=== PATIENT | male | born 1960 | race Caucasian/White ===

== ENCOUNTER → 2019-02-22 08:44 | Outpatient (CLI) | payer MEDICARE ==
--- NOTE | 2019-02-27 09:50 | ST ---
PATIENT:KENA BRITTON MEDICAL RECORD: [id number] SEX: M LOCATION:[facility] ORDER #: ADMISSION DATE: 02/22/19 AGE OF PATIENT: 58 REFERRING PHYSICIAN: INTERPRETING PHYSICIAN: NANY GARCIA MD DATE OF SERVICE: 02/22/2019 PROCEDURE: Nuclear stress test. INDICATION: Angina, abnormal ECG, dysrhythmia -- atrial fibrillation. He was exercised on standard Ryan protocol for 7 minutes 40 seconds achieving greater than 85% max target heart rate response with 33 mCi of sestamibi injected at peak stress, 11 mCi used previously for rest images. FINDINGS: Gated SPECT reveals preserved ejection fraction at 57% with good wall motion and thickening and brightening throughout all segments. SPECT imaging Cardiolite was used as myocardial fusion agent. There is homogeneous uptake throughout all segments at rest and stress with no evidence of inducible ischemia or previous infarction. OVERALL IMPRESSION: 1. This is a normal nuclear stress test with no evidence of inducible ischemia or previous infarction. 2. Gated SPECT reveals a preserved ejection fraction at 57%. In this patient with ongoing symptomatology, the current scan does not suggest the presence of hemodynamically significant coronary artery disease. Evaluate noncardiac etiology of chest pain. TRANSINT:[id number] Voice Confirmation ID: [id number] DOCUMENT ID: [id number] NANY GARCIA MD at 0950 CC: EDENILSON COLE DO [id number] DICTATION DATE: 02/22/19 1638 GEAR HOBBER OPERATOR: 02/23/19 0851 [place] CLI 02/22/19 [place] [id number] [place] [address]
--- NOTE | 2019-02-27 14:16 | EC ---
PATIENT:KENA BRITTON DATE OF SERVICE: 02/22/19 SEX: M MEDICAL RECORD: [id number] DATE OF : 56 [facility] AGE OF PATIENT: 58 ADMISSION DATE: 02/22/19 REFERRING PHYSICIAN: INTERPRETING PHYSICIAN: SHANE MOCK MD ECHOCARDIOGRAM REPORT ECHO CHARGES 4 ECHO COMPLETE Date: 02/22/19 CLINICAL DIAGNOSIS: A-FIB/ABNORMAL EKG/ANGINA/ GUTIÉRREZ/MURMUR ECHOCARDIOGRAPHIC MEASUREMENTS (adult normal given) AC root (d.<3.7cm) 3.3 cm LV Septum d (<1.2 cm> 1.2 cm Valve Excursion 2.0 cm LV Septum (systole) 1.6 cm Left Atria (s.<4.0cm> 3.9 cm LVPW d(<1.2cm) 1.0 cm RV (d.<2.3cm) 2.9 cm LVPW (sytole) 1.9 cm LV diastole(<5.6CM) 5.2 cm MV E-F(>70mm/sec) cm LV systole 3.1 cm LVOT Diameter 2.0 cm MV exc.(>10mm) cm Est.ejection fraction (50-75%) % DOPPLER: LVIT cm/sec A 44.0 cm/sec E 74.0 cm/sec LA cm/sec RVSP 39.0 mmHg LVOT 98.0 cm/sec AOP1/2T m/s Asc. Ao 141 cm/sec RVOT 59.0 cm/sec RA cm/sec PA 87.0 cm/sec AV Gradient Peak 8.0 mmHg AV Mean 4.0 mmHg AV Area 2.4 cm MV Gradient Peak 4.3 mmHg MV Mean 1.3 mmHg MV Area cm COMMENTS: OP - HC Cryptographic Clerk: 1 ALFREDO BARRIENTOSOE Alcohol Rubber: 3 Dr. Cox TAPE# PACS Pericardial Effusion N DATE OF SERVICE: Adequate 2-D echo, color-flow and spectral Doppler, and M-mode. No LVH. LV internal dimension is normal. Wall motion normal. EF is greater than or equal to 55%. Aortic valve is tricuspid. No evidence of stenosis by Doppler interrogation. Left atrium normal at 3.9 cm. Mitral valve shows no prolapse. Trace MR. Right-sided chambers are grossly normal. Mild TR. TRANSINT:[id number] Voice Confirmation ID: [id number] DOCUMENT ID: [id number] ECHOCARDIOGRAM REPORT [id number] KENA BRITOTN,SHANE Onofre MD at 1416 CC: [id number] DICTATION DATE: 02/23/19 1338 CHARTER DRIVER: 02/23/19 1531 [place] CLI 02/22/19 [place] [id number]
== END | disposition home or self-care (01) ==
LOC: D.HCCARDIO 08:44
PROVIDERS: ATTEND Internal Medicine Interventional Cardiology
DX: I20.9 Angina pectoris, unspecified (principal)

== ENCOUNTER 2019-06-28 15:55 | Inpatient (IN) | payer MEDICARE, OTHER ==
[~2019-06-28] VITALS: Ht 177.8 cm; Wt 77.3 kg
[2019-06-28 17:24] LABS: BASOPHILS 0.2 % (0-2); EOSINOPHILS 1.2 % (0-7); HEMATOCRIT 56.5 % (42.0-54.0); HEMOGLOBIN 20.5 g/dL (13.5-17.5); IMMATURE GRANULOCYTES 0.4 % (0-5); LYMPHOCYTES 17.1 % (15-50); MCH 31.9 pg (26.0-34.0); MCHC 36.3 g/dL (31.0-37.0); MCV 87.9 fL (80.0-100.0); MEAN PLATELET VOLUME 10.6 fL (7.4-10.4); MONOCYTES 12.2 % (2-11); NEUTROPHILS 68.9 % (40-80); PLATELET COUNT 285 10x3/uL (130-400); RBC 6.43 10x6/uL (4.20-6.10); RDW 12.5 % (11.5-14.5); WBC 10.7 10x3/uL (4.8-10.8)
[2019-06-28 17:27] VITALS: BP 134/85; BMI 25.5
[2019-06-28 17:38] LABS: ANION GAP 14.2 mmol/L (8-16); CALCIUM 9.6 mg/dL (8.5-10.1); CARBON DIOXIDE 29.5 mmol/L (21.0-32.0); CREATININE - SERUM 1.1 mg/dL (0.6-1.3); POTASSIUM - SERUM 5.7 mmol/L (3.5-5.1)
[2019-06-28 17:44] LABS: ALBUMIN 3.9 g/dL (3.4-5.0); BILIRUBIN - TOTAL 0.84 mg/dL (0.2-1.3); PROTEIN - SERUM 6.7 g/dL (6.4-8.2)
--- NOTE | 2019-06-28 19:45 | NUR ---
PT RESTING IN BED ALERT AND ORIENTED X4. NO S/S OF DISTRESS AT THIS TIME. BED LOW CALL LIGHT WITHIN REACH. WILL CONTINUE TO MONITOR.
[2019-06-28 20:00] VITALS: BP 146/98
[2019-06-29] VITALS: BP 137/90
[2019-06-29 04:00] VITALS: BP 128/80
[2019-06-29 04:25] LABS: BASOPHILS 0.2 % (0-2); EOSINOPHILS 1.1 % (0-7); HEMATOCRIT 52.6 % (42.0-54.0); HEMOGLOBIN 18.2 g/dL (13.5-17.5); IMMATURE GRANULOCYTES 0.6 % (0-5); LYMPHOCYTES 19.3 % (15-50); MCH 30.8 pg (26.0-34.0); MCHC 34.6 g/dL (31.0-37.0); MCV 89.2 fL (80.0-100.0); MONOCYTES 9.7 % (2-11); NEUTROPHILS 69.1 % (40-80); PLATELET COUNT 275 10x3/uL (130-400); RDW 12.6 % (11.5-14.5); WBC 8.3 10x3/uL (4.8-10.8)
[2019-06-29 04:37] LABS: APPEARANCE CLEAR (CLEAR); BILIRUBIN NEGATIVE (NEGATIVE); COLOR YELLOW (YELLOW); GLUCOSE NEGATIVE (NEGATIVE); KETONE LARGE mg/dL (NEGATIVE); NITRITE NEGATIVE (NEGATIVE); PROTEIN 1+ mg/dL (NEGATIVE); UROBILINOGEN NORMAL (NORMAL)
[2019-06-29 04:38] LABS: BACTERIA NONE SEEN /hpf (NEGATIVE); CALCIUM OXALATE CRYSTALS 0-5 /hpf (NONE SEEN); EPITHELIAL CELLS NSEEN /hpf (0-5); RED CELLS - URINE NONE SEEN /hpf (0-5); WHITE CELLS - URINE 0-5 /hpf (NEGATIVE)
[2019-06-29 04:54] LABS: ALBUMIN 3.3 g/dL (3.4-5.0); ANION GAP 14.1 mmol/L (8-16); BILIRUBIN - TOTAL 0.83 mg/dL (0.2-1.3); CALCIUM 8.4 mg/dL (8.5-10.1); CARBON DIOXIDE 28.3 mmol/L (21.0-32.0); CREATININE - SERUM 1.2 mg/dL (0.6-1.3); POTASSIUM - SERUM 5.4 mmol/L (3.5-5.1); PROTEIN - SERUM 6.2 g/dL (6.4-8.2)
--- NOTE | 2019-06-29 07:53 | NUR ---
REPORT RECEIVED. WILL CONTINUE WITH POC. PT CURRENTLY LYING ON LEFT SIDE RESTING. CALL LIGHT W/I REACH. RR EVEN AND UNLABORED ON RA. NS INFUSING @100ML/HR VIA R.FOR PIV. NO S/S OF DISTRESS NOTED. PT DENIES ANY NEEDS. WILL CTM.
[2019-06-29 09:18] VITALS: BP 132/70
[2019-06-29 12:00] VITALS: BP 135/83
[2019-06-29 12:09] VITALS: BMI 25.5
[2019-06-29 13:19] LABS: % SATURATION 36 % (15-55); IRON 101 ug/dl (35-150); TOTAL IRON BIND CAPACITY 276 ug/dl (260-445); UNSAT IRON BIND CAPACITY 175 ug/dl (150-375)
--- NOTE | 2019-06-29 14:38 | NUR ---
I have reviewed this patient and I concur with the Shift Assessment completed by the Licensed Practical Nurse today this shift.
[2019-06-29 18:04] VITALS: BP 138/90
[2019-06-29 20:00] VITALS: BP 143/94
--- NOTE | 2019-06-30 02:50 | NUR ---
PT RESTING COMFORTABLY IN BED RR EVEN AND UNLABORED. NO S/S OF DISTRESS AT THIS TIME. BED LOW CALL LIGHT WITHIN REACH. GUILLE CONTINUE TO MONITOR.
[2019-06-30 04:00] VITALS: BP 129/92
[2019-06-30 04:01] LABS: BASOPHILS 0.5 % (0-2); EOSINOPHILS 3.6 % (0-7); HEMATOCRIT 46.9 % (42.0-54.0); HEMOGLOBIN 16.3 g/dL (13.5-17.5); IMMATURE GRANULOCYTES 0.3 % (0-5); LYMPHOCYTES 33.3 % (15-50); MCHC 34.8 g/dL (31.0-37.0); MCV 89.2 fL (80.0-100.0); MEAN PLATELET VOLUME 10.6 fL (7.4-10.4); NEUTROPHILS 50.3 % (40-80); PLATELET COUNT 234 10x3/uL (130-400); RBC 5.26 10x6/uL (4.20-6.10); RDW 12.3 % (11.5-14.5)
[2019-06-30 04:09] LABS: WBC 5.8 10x3/uL (4.8-10.8)
[2019-06-30 04:28] LABS: ALBUMIN 3.1 g/dL (3.4-5.0); ANION GAP 8.9 mmol/L (8-16); BILIRUBIN - TOTAL 1.07 mg/dL (0.2-1.3); CALCIUM 8.4 mg/dL (8.5-10.1); CARBON DIOXIDE 30.6 mmol/L (21.0-32.0); CREATININE - SERUM 1.1 mg/dL (0.6-1.3); PROTEIN - SERUM 5.5 g/dL (6.4-8.2)
[2019-06-30 04:39] LABS: POTASSIUM - SERUM 4.5 mmol/L (3.5-5.1)
[2019-06-30 09:59] VITALS: BP 135/82
--- NOTE | 2019-06-30 13:12 | NUR ---
RIGHT FA IV SL.
[2019-06-30 13:28] VITALS: BP 132/95
--- NOTE | 2019-06-30 15:54 | NUR ---
I have reviewed this patient and I concur with the Shift Assessment completed by the Licensed Practical Nurse today this shift.
--- NOTE | 2019-06-30 16:10 | NUR ---
PT SITTING IN RECLINER CHIAR. PT STATES HE HAS NO FURTHER NEEDS AT THIS TIME. BED LOW. CL IN REACH.
--- NOTE | 2019-06-30 16:21 | MORECARE ---
CASE MANAGEMENT DISCHARGE SUMMARY PATIENT: KENA BRITTON UNIT: [id number] ADM DATE: 06/28/19 AGE: 59 : 56 SEX: M ROOM/BED: D.[facility] AUTHOR: MARIA ALEJANDRADOC PHYSICIAN: REFERRING PHYSICIAN: EDENILSON COLE DO DATE OF SERVICE: 06/30/19 Discharge Plan Patient Name: KENA BRITTON Facility: [facility]:[place] : 1960 Planned Disposition: Home Anticipated Discharge Date: Discharge Date: Expected LOS: Initial Reviewer: [email or web address] Initial Review Date: 06/30/2019 Generated: 06/30/19 5:21 pm Comments DCP- Discharge Planning Updated by [email or web address]: Dwight Moreno on 06/30/19 3:[address] Patient Name: KENA BRITTON Admission Status: Elective Accout number: [id number] Admission Date: 06-28-2019 : 1960 Admission Diagnosis: Attending: EDENILSON COLE Current LOS: 2 Anticipated DC Date: Planned Disposition: Home Primary Insurance: MEDICARE A & B Discharge Planning Comments: CM MET WITH PT AND SPOUSE IN ROOM TO DISCUSS DISCHARGE PLANNING AND NEEDS. KENA BRITTON provided verbal consent to discuss current and ongoing needs with/in the presence of: SPOUSE, COLBY. PT REPORTS LIVING AT HOME INDEPENDENTLY WITH HIS . PT HAS NO MEDICAL EQUIPMENT AND NO OUTSIDE SERVICES ASSISTING IN THE HOME. CM DISCUSSED AVAILABILITY OF HOME HEALTH, REHAB SERVICES AND MEDICAL EQUIPMENT. PT DENIES DISCHARGE NEEDS, REPORTS HIS WILL PICK HIM UP FOR DISCHARGE HOME. IMPORTANT MESSAGE FROM MEDICARE PROVIDED AND EXPLAINED. PT PLANS TO DISCHARGE HOME WITH SPOUSE, HAS NO ANTICIPATED NEEDS FOR DISCHARGE, SPOUSE TO TRANSPORT. CM TO FOLLOW AND ASSIST IF NEEDED. Immigration Law Specialist: Dwight Moreno DCPIA - Discharge Planning Initial Assessment Updated by [email or web address]: Dwight Moreno on 06/30/19 4:10 pm * Is the patient Alert and Oriented? Yes * How many steps to enter\exit or inside your home? NONE * PCP DR. COLE * Pharmacy [facility] IN [place] * Preadmission Environment Home with Family * ADLs Independent * Equipment None * Other Equipment NO MEDICAL EQUIPMENT PROVIDER PREFERENCE * List name and contact numbers for known caregivers / representatives who currently or will assist patient after discharge: COLBY BRITTON, SPOUSE, [phone] * Verbal permission to speak to the caregivers and representatives has been obtained from the patient. Yes * Community resources currently utilized None * Please name any agencies selected above. NONE * Additional services required to return to the preadmission environment? No * Can the patient safely return to the preadmission environment? Yes * Has this patient been hospitalized within the prior 30 days at any hospital? No Coverage Notice Reviewer: [id number] Magdalene Moreno Notice Issued Date-Time: 06/30/2019 13:35 Notice Type: IM Discharge Notice Notice Delivered To: Patient Relationship to Patient: Demonstrator Sales Name: Delivery Method: HAND - Hand Delivered [place] Days: Prior Verbal Notification: Recipient Understood Notice: Yes Recipient Signature: Yes Med Rec Note Co-signed by Attending: Coverage Notice Comment: Patient Name: KENA BRITTON Page [phone] at 1621 All edits/amendments must be made on the electronic document DICTATION DATE: 06/30/191619 HIGH SCHOOL BAND TEACHER: SEVERIANO 06/30/19 162 RPT#: [id number] DC DATE: STATUS: ADM IN [facility] [address] [place] [address] END OF REPORT
[2019-06-30 17:32] VITALS: BP 154/88
--- NOTE | 2019-06-30 19:10 | NUR ---
BEDSIDE REPORT RECEIVED FROM DAY SHIFT, PT CARE ASSUMED. INTRODUCED SELF AND WROTE NAME ON BOARD. PT BACK TO BED FROM SHOWER, AAOX4. DENIES ANY NEEDS AT THIS TIME. BED IN LOWEST POSITION, SR X2, CALL LIGHT WITHIN REACH. WILL CONTINUE TO MONITOR.
--- NOTE | 2019-06-30 19:55 | NUR ---
DR. SNYDER TO ROOM TO DISCUSS DATE OF CHOLYCYSTECTOMY FOR 07/03/2019, WITH DR. SALINAS OR ANABEL. INFORMED PT OF RESULTS FROM IMAGING OF POSSIBILE ENTERITIS. D/C DISCUSSED FOR POST CHOLY, EITHER 07/03/2019, OR 07/04/2019.
[2019-06-30 20:00] VITALS: BP 134/88
--- NOTE | 2019-06-30 21:07 | NUR ---
PT REQUESTING BENADRYL TO HELP HIM SLEEP. JULIA BOWMAN, PAGED.
--- NOTE | 2019-06-30 21:59 | NUR ---
JULIA BOWMAN, PAGED.
--- NOTE | 2019-06-30 22:00 | NUR ---
PT SITTING UP IN BED WATCHING TV, A&A. NIGHT TIME MEDS ADMINISTERED, PER ORDER. DENIES ANY OTHER NEEDS AT THIS TIME. BED IN LOWEST POSITION, SR X2, CALL LIGHT WITHIN REACH. WILL CONTINUE TO MONITOR.
[2019-07-01] VITALS: BP 143/84
[2019-07-01 05:46] LABS: BASOPHILS 0.4 % (0-2); EOSINOPHILS 5.5 % (0-7); HEMATOCRIT 47.2 % (42.0-54.0); HEMOGLOBIN 16.2 g/dL (13.5-17.5); IMMATURE GRANULOCYTES 0.2 % (0-5); LYMPHOCYTES 36.8 % (15-50); MCH 30.6 pg (26.0-34.0); MCHC 34.3 g/dL (31.0-37.0); MCV 89.2 fL (80.0-100.0); MEAN PLATELET VOLUME 10.9 fL (7.4-10.4); MONOCYTES 14.1 % (2-11); PLATELET COUNT 228 10x3/uL (130-400); RBC 5.29 10x6/uL (4.20-6.10); RDW 12.4 % (11.5-14.5); WBC 5.3 10x3/uL (4.8-10.8)
[2019-07-01 05:59] LABS: CALC OSMOLALITY 285 mosm/kg (275-300); CALCIUM 8.6 mg/dL (8.5-10.1); CARBON DIOXIDE 31.5 mmol/L (21.0-32.0); CHLORIDE - SERUM 110 mmol/L (98-107); GLUCOSE 87 mg/dL (74-106); POTASSIUM - SERUM 5.1 mmol/L (3.5-5.1); SODIUM 145 mmol/L (136-145); eGFR NON AFRICAN AMERICAN 81 mL/min (90-120)
[2019-07-01 06:00] LABS: UREA NITROGEN 6 mg/dL (7-18)
--- NOTE | 2019-07-01 07:50 | NUR ---
PT AWAKE AND ORIENTED, C/O WANTING A BETTER MORE FILLING DIET. SPOKE WITH ELLIOTT BOWMAN, WILL ADVANCE TO FULL LIQUIDS AND REASSES POST BREAKFAST. CL IN REACH, SRX2. NO FAMILY AT BEDSIDE. PT STATED HE WAS TOLD HE COULD GO HOME AND RETURN WEDNESDAY FOR OUTPATIENT GALL BLADDER REMOVAL, BUT HE REFUSED. STATED "IF I GO HOME AND EAT A WHOLE PIZZA I'LL JUST BE RIGHT BACK HERE". INFORMED PT THAT THE BEST OPTION IN THAT SCENERIO WOULD BE TO JUST NOT EAT A WHOLE PIZZA.
[2019-07-01 08:16] VITALS: BP 134/82
[2019-07-01 11:45] VITALS: BP 145/95
[2019-07-01 16:36] VITALS: BP 150/92
--- NOTE | 2019-07-01 18:31 | NUR ---
PT AWAKE AND ORIENTED ALL DAY. UP AD KAROLINA WITH NO ASSISTANCE. NO COMPLAINTS OR CONCERNS OR QUESTIONS. FAMILY HAS BEEN IN AND OUT OF ROOM VISITING ALL DAY. CL IN REACH, SRX2.
--- NOTE | 2019-07-01 19:10 | NUR ---
BEDSIDE REPORT RECEIVED FROM DAY SHIFT, PT CARE ASSUMED. WROTE NAME ON BOARD, PT SITTING UP IN BED, AAOX4. DENIES PAIN OR ANY OTHER NEEDS AT THIS TIME. BED IN LOWEST POSITION, SR X2, CALL LIGHT WITHIN REACH. WILL CONTINUE TO MONITOR.
[2019-07-01 20:00] VITALS: BP 152/91
[2019-07-01 23:44] VITALS: BP 142/83
[2019-07-02 04:05] VITALS: BP 140/79
[2019-07-02 04:32] LABS: BASOPHILS 0.4 % (0-2); EOSINOPHILS 4.9 % (0-7); HEMOGLOBIN 16.4 g/dL (13.5-17.5); IMMATURE GRANULOCYTES 0.4 % (0-5); LYMPHOCYTES 33.7 % (15-50); MCH 30.7 pg (26.0-34.0); MCHC 34.2 g/dL (31.0-37.0); MCV 89.7 fL (80.0-100.0); MEAN PLATELET VOLUME 10.5 fL (7.4-10.4); MONOCYTES 12.3 % (2-11); NEUTROPHILS 48.3 % (40-80); PLATELET COUNT 214 10x3/uL (130-400); RBC 5.35 10x6/uL (4.20-6.10); RDW 12.2 % (11.5-14.5); WBC 5.1 10x3/uL (4.8-10.8)
[2019-07-02 04:42] LABS: ANION GAP 11.4 mmol/L (8-16); CALCIUM 8.5 mg/dL (8.5-10.1); CARBON DIOXIDE 30.2 mmol/L (21.0-32.0); CREATININE - SERUM 1.1 mg/dL (0.6-1.3); POTASSIUM - SERUM 5.6 mmol/L (3.5-5.1)
--- NOTE | 2019-07-02 07:41 | NUR ---
PT IS AWAKE AND ORIENTED,S ITTING IN BED. C/O BEING BORED AND VERY READY TO GET OUT OF HERE. AGREE WITH PT. PT WANTS TO KNOW WHEN HE'LL BE HAVING HIS SURGERY IN [facility], INFORMED HIM THAT WE WOULD NOT KNOW UNTIL THEY CALLED TO GET HIM PREOPPED, BUT THAT HIS SHOULD BE HERE BY 0700 JUST IN CASE. NO COMPLAINTS/CONCERNS OTHER THAN THOSE STATED, ALL QUESTIONS ANSWERED TO THE BEST OF MY ABILITY. CL IN REACH, SRX2.
[2019-07-02 08:08] VITALS: BP 138/93
[2019-07-02 11:44] VITALS: BP 149/91
[2019-07-02 16:27] VITALS: BP 142/77
--- NOTE | 2019-07-02 17:06 | NUR ---
I have reviewed this patient and I concur with the Shift Assessment completed by the Licensed Practical Nurse today this shift.
[2019-07-02 20:20] VITALS: BP 141/86
[2019-07-03 00:37] VITALS: BP 152/93
[2019-07-03 04:30] VITALS: BP 148/93
[2019-07-03 05:50] LABS: CALCIUM 8.3 mg/dL (8.5-10.1); CARBON DIOXIDE 32.4 mmol/L (21.0-32.0); CHLORIDE - SERUM 107 mmol/L (98-107); CREATININE - SERUM 0.9 mg/dL (0.6-1.3); GLUCOSE 85 mg/dL (74-106); SODIUM 145 mmol/L (136-145); eGFR NON AFRICAN AMERICAN > 90 mL/min (90-120)
[2019-07-03 05:52] LABS: BASOPHILS 0.5 % (0-2); EOSINOPHILS 4.7 % (0-7); HEMATOCRIT 45.8 % (42.0-54.0); HEMOGLOBIN 15.6 g/dL (13.5-17.5); IMMATURE GRANULOCYTES 0.2 % (0-5); LYMPHOCYTES 29.9 % (15-50); MCH 30.6 pg (26.0-34.0); MCHC 34.1 g/dL (31.0-37.0); MCV 89.8 fL (80.0-100.0); MEAN PLATELET VOLUME 11.4 fL (7.4-10.4); MONOCYTES 13.4 % (2-11); NEUTROPHILS 51.3 % (40-80); PLATELET COUNT 231 10x3/uL (130-400); RDW 12.1 % (11.5-14.5); WBC 5.8 10x3/uL (4.8-10.8)
[2019-07-03 05:53] LABS: CALC OSMOLALITY 287 mosm/kg (275-300); POTASSIUM - SERUM 4.2 mmol/L (3.5-5.1); UREA NITROGEN 13 mg/dL (7-18)
[2019-07-03 07:57] VITALS: BP 136/85
--- NOTE | 2019-07-03 10:45 | NUR ---
I have reviewed this patient and I concur with the Shift Assessment completed by the Licensed Practical Nurse today this shift.
--- NOTE | 2019-07-03 11:28 | NUR ---
PT TAKEN TO SURGERY, WAITING AT BEDSIDE.
--- NOTE | 2019-07-03 12:20 | NUR ---
NUTRITION F/U CHART REVIEWED. PT CURRENTLY NPO FOR LAP CHAYO. NO CURRENT NUTRITION SUPPORT. WILL MONITOR DIET ADVANCEMENT, PO INTAKE. RD FOLLOWING
[2019-07-03] MEDS ORDERED: HYDROCODON-ACE1 EAC7 PO (13:30)
--- NOTE | 2019-07-03 14:21 | NUR ---
PT BACK IN ROOM POST SRUGERY. A/OX4, BUT OBVIOUSLY FEELING THE DILAUDID HE RECIEVED. AT BEDSIDE, LUNCH PROVIDED.
[2019-07-03 15:31] VITALS: BP 134/77
--- NOTE | 2019-07-03 16:54 | MORECARE ---
CASE MANAGEMENT DISCHARGE SUMMARY PATIENT: KENA BRITTON UNIT: [id number] ADM DATE: 06/28/19 AGE: 59 : 56 SEX: M ROOM/BED: D.[facility]3 AUTHOR: BOB BESS PHYSICIAN: REFERRING PHYSICIAN: EDENILSON COLE DO DATE OF SERVICE: 07/03/19 Discharge Plan Patient Name: KENA BRITTON Facility: [facility]:[place] : 1960 Planned Disposition: Home Anticipated Discharge Date: 07/03/19 Discharge Date: Expected LOS: 5 Initial Reviewer: [email or web address] Initial Review Date: 06/30/2019 Generated: 07/03/19 5:53 pm Comments DCP- Discharge Planning Updated by [email or web address]: Dwight Moreno on 07/03/19 3:[address] Patient Name: KENA BRITTON Encounter No: [id number] : 1960 Primary Insurance: MEDICARE A & B Anticipated DC Date: 07-03-2019 Planned Disposition: Home DCP follow-up note: CM MET WITH PT IN ROOM TO DISCUSS DISCHARGE NEEDS AND PLANNING. CM DISCUSSED AVAILABILITY OF HOME HEALTH, REHAB SERVICES AND MEDICAL EQUIPMENT. PT DENIES DISCHARGE NEEDS. SPOUSE TO TRANSPORT HOME AT DISCHARGE. IMPORTANT MESSAGE FROM MEDICARE PROVIDED AND EXPLAINED. LUZ MARIA Faria DCP- Discharge Planning Updated by [id number]: Dwight Moreno on 06/30/19 4:[address] Patient Name: KENA BRITTON Admission Status: Elective Accout number: [id number] Admission Date: 06-28-2019 : 1960 Admission Diagnosis: Attending: EDENILSON COLE Current LOS: 2 Anticipated DC Date: Planned Disposition: Home Primary Insurance: MEDICARE A & B Discharge Planning Comments: CM MET WITH PT AND SPOUSE IN ROOM TO DISCUSS DISCHARGE PLANNING AND NEEDS. KENA BRITTON provided verbal consent to discuss current and ongoing needs with/in the presence of: SPOUSE, COLBY. PT REPORTS LIVING AT HOME INDEPENDENTLY WITH HIS . PT HAS NO MEDICAL EQUIPMENT AND NO OUTSIDE SERVICES ASSISTING IN THE HOME. CM DISCUSSED AVAILABILITY OF HOME HEALTH, REHAB SERVICES AND MEDICAL EQUIPMENT. PT DENIES DISCHARGE NEEDS, REPORTS HIS WILL PICK HIM UP FOR DISCHARGE HOME. IMPORTANT MESSAGE FROM MEDICARE PROVIDED AND EXPLAINED. PT PLANS TO DISCHARGE HOME WITH SPOUSE, HAS NO ANTICIPATED NEEDS FOR DISCHARGE, SPOUSE TO TRANSPORT. CM TO FOLLOW AND ASSIST IF NEEDED. Language Asst: Dwight Moreno DCPIA - Discharge Planning Initial Assessment Updated by [id number]: Dwight Moreno on 06/30/19 4:10 pm * Is the patient Alert and Oriented? Yes * How many steps to enter\exit or inside your home? NONE * PCP DR. COLE * Pharmacy [facility] IN [place] * Preadmission Environment Home with Family * ADLs Independent * Equipment None * Other Equipment NO MEDICAL EQUIPMENT PROVIDER PREFERENCE * List name and contact numbers for known caregivers / representatives who currently or will assist patient after discharge: COLBY BRITTON, SPOUSE, [phone] * Verbal permission to speak to the caregivers and representatives has been obtained from the patient. Yes * Community resources currently utilized None * Please name any agencies selected above. NONE * Additional services required to return to the preadmission environment? No * Can the patient safely return to the preadmission environment? Yes * Has this patient been hospitalized within the prior 30 days at any hospital? No Coverage Notice Reviewer: [email or web address] - Dwight Moreno Notice Issued Date-Time: 06/30/2019 13:35 Notice Type: IM Discharge Notice Notice Delivered To: Patient Relationship to Patient: Chemical Milling Processor Name: Delivery Method: HAND - Hand Delivered [place] Days: Prior Verbal Notification: Recipient Understood Notice: Yes Recipient Signature: Yes Med Rec Note Co-signed by Attending: Coverage Notice Comment: Last DP export: 06/30/19 4:21 p Patient Name: KENA BRITTON Page [phone] at 1654 All edits/amendments must be made on the electronic document DICTATION DATE: 07/03/191652 CASTING MACHINE ADJUSTER: SEVERIANO 07/03/191652 RPT#: [id number] DC DATE: STATUS: ADM IN [facility] [address] [place] [address] END OF REPORT
--- NOTE | 2019-07-03 17:39 | NUR ---
PT ESCORTED OUT VIA WHEELCAHIR TO FRON DOOR, ELECTED TO WALK THE REST OF THE WAY TO THE CAR.
[2019-08-02 16:21] VITALS: Ht 177.8 cm; Wt 77.3 kg
== END 2019-07-03 17:41 | disposition home or self-care (01) | DRG 417 ==
LOC: D.SDCHOLD 15:55 → D.M2 16:12
PROVIDERS: Family Medicine; Internal Medicine Hematology & Oncology; Surgery; ADMIT Family Medicine; ATTEND Family Medicine
PROC: 0FT44ZZ Resection of Gallbladder, Percutaneous Endoscopic Approach (ICD-10-PCS; principal; 2019-07-03 12:30)
DX: K82.8 Other specified diseases of gallbladder (principal); E43 Unspecified severe protein-calorie malnutrition; K25.4 Chronic or unspecified gastric ulcer with hemorrhage; K52.9 Noninfective gastroenteritis and colitis, unspecified; I10 Essential (primary) hypertension; I48.91 Unspecified atrial fibrillation; E87.5 Hyperkalemia; D75.1 Secondary polycythemia; Z68.25 Body mass index [BMI] 25.0-25.9, adult; N40.0 Benign prostatic hyperplasia without lower urinary tract symptoms; G89.29 Other chronic pain; M54.9 Dorsalgia, unspecified; Z86.010 Personal history of colon polyps; Z87.891 Personal history of nicotine dependence

== ENCOUNTER 2019-11-15 17:27 | Inpatient (IN) | payer MEDICARE, OTHER ==
[~2019-11-15] VITALS: Ht 177.8 cm; Wt 76.2 kg
[~2019-11-15 17:27] MED LIST: HYDROCODON-ACE1 EAC7 PO
[2019-11-15 18:20] LABS: ANION GAP 14.1 mmol/L (8-16); CALCIUM 9.7 mg/dL (8.5-10.1); CARBON DIOXIDE 25.6 mmol/L (21.0-32.0); CREATININE - SERUM 1.3 mg/dL (0.6-1.3); POTASSIUM - SERUM 4.7 mmol/L (3.5-5.1)
[2019-11-15 18:26] LABS: BILIRUBIN - TOTAL 0.85 mg/dL (0.2-1.3); MAGNESIUM - SERUM 1.9 mg/dL (1.8-2.4); PROTEIN - SERUM 7.4 g/dL (6.4-8.2)
--- NOTE | 2019-11-15 18:30 | NUR ---
STARTED IV IN THE RIGHT ARM, 22 G. PLACED IN ISOLATION.
[2019-11-15 18:34] LABS: BASOPHILS 0.1 % (0-2); EOSINOPHILS 0.7 % (0-7); HEMATOCRIT 58.4 % (42.0-54.0); HEMOGLOBIN 20.9 g/dL (13.5-17.5); IMMATURE GRANULOCYTES 0.4 % (0-5); LYMPHOCYTES 14.7 % (15-50); MCH 31.3 pg (26.0-34.0); MCHC 35.8 g/dL (31.0-37.0); MCV 87.6 fL (80.0-100.0); MEAN PLATELET VOLUME 11.7 fL (7.4-10.4); MONOCYTES 14.5 % (2-11); NEUTROPHILS 69.6 % (40-80); RDW 12.4 % (11.5-14.5); WBC 13.8 10x3/uL (4.8-10.8)
[2019-11-15 18:40] LABS: PLATELET COUNT 278 10x3/uL (130-400); RBC 6.67 10x6/uL (4.20-6.10)
[2019-11-15 20:43] VITALS: BP 139/94
[2019-11-15 21:33] VITALS: BP 136/65; BMI 24.1
[2019-11-15 23:02] LABS: BILIRUBIN NEGATIVE (NEGATIVE); GLUCOSE NEGATIVE (NEGATIVE); KETONE LARGE mg/dL (NEGATIVE); NITRITE NEGATIVE (NEGATIVE); UROBILINOGEN NORMAL (NORMAL)
--- NOTE | 2019-11-15 23:24 | NUR ---
PATIENT ASSISMENT COMPLETED CALL FROM TELEMETRY STATED THAT PT PULSE WAS RUNNING 130-178 UNCONTROLED A FIB. CONCETTA CALLED AT 2159 ASSISSTED BY TEAM. PATIENT IS ASYSTEMATIC. HAD SAID THAT HE HAD NO HEART PROBLEMS.EKG PREFORMED AND ON CHART. BUT WHEN SEEN BY PMP HE STATED HE HAD SOME YRS AGO BUT THOUGHT IT WAS RELATED TO JOB STRESS. ORDER FOR 500CC BOLUIS OF NS ANF 2 MG OF MORPHINE IV FOR PAIN. CT SCAN ORDERED FOR LOWER ABD PAIN. ORDER TO CALL DR TOSHA HOFFMAN. CALL PLACED TO [phone] AWATTING CALL BACK. PT. OUT OF ROOM FOR CT AT THIS TIME.
--- NOTE | 2019-11-16 00:11 | NUR ---
PT RETRUNED TO ROOM FROM CT SCAN NO S/S 0F DISTRESS
[2019-11-16 00:20] VITALS: BP 124/94
--- NOTE | 2019-11-16 02:28 | NUR ---
TELEMETRY CALLED PATIENT CONVERTED BACK TO 79 SINUS REATHM. JULIA CALLED NO RETRUN YET FROM CARDIO DR. DUMONT GAVE ORDER TO START LOVENOX AND CONSULT CARDIO IN AM. UNLESS FUTHER EEPISODES.
--- NOTE | 2019-11-16 02:42 | NUR ---
CALL TO LAND MANAGEMENT SUPERVISOR TO JOCE THAT HE WANTS LOVENOX 30MG GIVEN ONE TIME NOW
[2019-11-16 05:51] LABS: BASOPHILS 0.2 % (0-2); EOSINOPHILS 0.6 % (0-7); HEMATOCRIT 52.6 % (42.0-54.0); HEMOGLOBIN 18.6 g/dL (13.5-17.5); IMMATURE GRANULOCYTES 0.3 % (0-5); LYMPHOCYTES 14.6 % (15-50); MCH 31.4 pg (26.0-34.0); MCHC 35.4 g/dL (31.0-37.0); MCV 88.9 fL (80.0-100.0); MEAN PLATELET VOLUME 11.1 fL (7.4-10.4); MONOCYTES 11.4 % (2-11); NEUTROPHILS 72.9 % (40-80); RBC 5.92 10x6/uL (4.20-6.10); RDW 12.4 % (11.5-14.5); WBC 12.5 10x3/uL (4.8-10.8)
[2019-11-16 06:11] LABS: INR 1.15 (0.85-1.17); PROTIME 14.6 SECONDS (11.6-15.0)
[2019-11-16 06:17] VITALS: BP 133/89
[2019-11-16 06:37] LABS: PLATELET COUNT 204 10x3/uL (130-400)
[2019-11-16 06:45] LABS: ALBUMIN 3.4 g/dL (3.4-5.0); ANION GAP 14.1 mmol/L (8-16); BILIRUBIN - TOTAL 0.74 mg/dL (0.2-1.3); CARBON DIOXIDE 27.2 mmol/L (21.0-32.0); CREATININE - SERUM 1.1 mg/dL (0.6-1.3); MAGNESIUM - SERUM 1.8 mg/dL (1.8-2.4); POTASSIUM - SERUM 5.3 mmol/L (3.5-5.1); PROTEIN - SERUM 5.9 g/dL (6.4-8.2)
--- NOTE | 2019-11-16 08:22 | NUR ---
DENIES NAUSEA OR VOMITING. STATES HE FEELS BETTER THAN YESTERDAY. TAKING SIPS OF CLEAR LIQUID DIET.
[2019-11-16 08:58] VITALS: BP 135/90
[2019-11-16 11:14] VITALS: BMI 24.1
[2019-11-16 12:26] VITALS: BP 137/87
[2019-11-16 12:34] LABS: AMYLASE - SERUM 17 U/L (25-115)
[2019-11-16 12:35] LABS: LIPASE 41 U/L (73-393)
[2019-11-16 13:04] VITALS: Ht 177.8 cm; Wt 76.2 kg
--- NOTE | 2019-11-16 16:58 | MORECARE ---
CASE MANAGEMENT DISCHARGE SUMMARY PATIENT: KENA DANGELO UNIT: [id number] ADM DATE: 11/15/19 AGE: 59 : 56 SEX: M ROOM/BED: D.2202 AUTHOR: BOB BESS PHYSICIAN: REFERRING PHYSICIAN: EDENILSON COLE DO DATE OF SERVICE: 11/16/19 Discharge Plan Patient Name: KENA DANGELO Facility: [facility]:[place] : 1960 Planned Disposition: Home Anticipated Discharge Date: 11/18/19 Discharge Date: Expected LOS: 3 Initial Reviewer: [email or web address] Initial Review Date: 11/15/2019 Generated: 11/16/19 5:57 pm Comments DCP- Discharge Planning Updated by [email or web address]: Carmen Razo on 11/16/19 3:[address] DC PLAN: Return home independently with . ANTICIPATED DC NEEDS: Denied known dc needs. CM met with patient to complete initial dc planning assessment. CM educated patient on the CM role and verbal consent given by patient to complete assessment. CM verified patient's address, phone number, and emergency contact phone numbers. Patient lives at [facility] independently with his . At discharge patient plans to return home and feels this is a safe discharge. CM discussed availability of home health, rehab services, and medical equipment. Patient denied known discharge needs at this time. Transportation provider at discharge will be his . CM will continue to follow and will assist as needed with dc plans/needs. Carmen Razo RN, [facility] DCPIA - Discharge Planning Initial Assessment Updated by [email or web address]: Carmen Razo on 11/16/19 4:53 pm * Is the patient Alert and Oriented? Yes * How many steps to enter\exit or inside your home? NONE * PCP Dr. Cole * Pharmacy [facility] in [place] * Preadmission Environment Home with Family * ADLs Independent * Equipment None * List name and contact numbers for known caregivers / representatives who currently or will assist patient after discharge: Donna Dangelo - spouse - [phone] * Verbal permission to speak to the caregivers and representatives has been obtained from the patient. Yes * Community resources currently utilized None * Additional services required to return to the preadmission environment? No * Can the patient safely return to the preadmission environment? Yes * Has this patient been hospitalized within the prior 30 days at any hospital? No Patient Name: KENA DANGELO Page [phone] at 1658 All edits/amendments must be made on the electronic document DICTATION DATE: 11/16/191657 AERIAL ADVERTISER: SEVERIANO 11/16/191657 RPT#: [id number] DC DATE: STATUS: ADM IN [facility] [address] [place] [address] END OF REPORT
[2019-11-16 17:15] VITALS: BP 147/89
[2019-11-16 20:00] VITALS: BP 131/80
--- NOTE | 2019-11-16 20:09 | NUR ---
rec'd. walking rounds chge of shift.in bed watching tv.denies nausea and vomitting or any other discomfort at present time.will continue to monitor for any chges and follow current plan of care.
[2019-11-17] VITALS (14 sets, daily range): BP systolic 113–139; BP diastolic 53–91
--- NOTE | 2019-11-17 03:40 | NUR ---
I have reviewed this patient and I concur with the Shift Assessment completed by the Licensed Practical Nurse today this shift.
[2019-11-17 06:29] LABS: APTT 27.5 SECONDS (22.8-39.4); INR 1.09 (0.85-1.17); PROTIME 14.1 SECONDS (11.6-15.0)
[2019-11-17 06:35] LABS: ALBUMIN 2.9 g/dL (3.4-5.0); ALKALINE PHOSPHATASE 72 U/L (30-120); BILIRUBIN - TOTAL 0.63 mg/dL (0.2-1.3); CALCIUM 8.1 mg/dL (8.5-10.1); CARBON DIOXIDE 26.4 mmol/L (21.0-32.0); CHLORIDE - SERUM 104 mmol/L (98-107); CREATININE - SERUM 0.9 mg/dL (0.6-1.3); GLUCOSE 84 mg/dL (74-106); MAGNESIUM - SERUM 1.7 mg/dL (1.8-2.4); PROTEIN - SERUM 5.3 g/dL (6.4-8.2); SODIUM 138 mmol/L (136-145); eGFR NON AFRICAN AMERICAN > 90 mL/min (90-120)
[2019-11-17 06:41] LABS: ALT (SGPT) 12 U/L (10-68); CALC OSMOLALITY 275 mosm/kg (275-300); PHOSPHOROUS 2.6 mg/dL (2.5-4.9); POTASSIUM - SERUM 3.7 mmol/L (3.5-5.1); UREA NITROGEN 15 mg/dL (7-18)
--- NOTE | 2019-11-17 07:46 | NUR ---
ALERT AND ORIENTED X4 SITTING UP IN CHAIR. TELEMETRY INTACT WITH SR 65. DENIES ANY CHEST PAIN OR DISCOMFORT. REINSTRUCTED ON NPO STATUS REGARDING PENDING PROCEDURE WITH EDUCATION GIVEN. LUNGS CTA WITH NO PERIPHERAL EDEMA NOTED. ELECTROLYTE PROTOCOL DONE WITH TREATMENT FOR HYPOMAGNESIUM. ENCOURAGED TO USE CALL LIGHT FOR ASSSIT.
[2019-11-17 07:51] LABS: BASOPHILS 0.4 % (0-2); EOSINOPHILS 2.9 % (0-7); HEMATOCRIT 43.3 % (42.0-54.0); IMMATURE GRANULOCYTES 0.1 % (0-5); LYMPHOCYTES 27.7 % (15-50); MCH 31.1 pg (26.0-34.0); MCHC 34.6 g/dL (31.0-37.0); MCV 89.6 fL (80.0-100.0); MEAN PLATELET VOLUME 11.3 fL (7.4-10.4); MONOCYTES 11.4 % (2-11); NEUTROPHILS 57.5 % (40-80); PLATELET COUNT 184 10x3/uL (130-400); RBC 4.83 10x6/uL (4.20-6.10); RDW 12.3 % (11.5-14.5)
[2019-11-17 07:56] LABS: WBC 6.8 10x3/uL (4.8-10.8)
--- NOTE | 2019-11-17 10:25 | NUR ---
PATIENT LEAVING WITH HOSPITAL STAFF FOR PROCEDURE. STABLE AT TIME OF DEPARTURE WITH IVF INFUSING TO RT ARM WITH NO S/S OF INFECTION/INFILTRATION.
[2019-11-17] MEDS ORDERED: Nicoderm [PBKC] TRANSDERM (11:04)
[2019-11-17] MEDS ORDERED: PROTONIX40 MG PO (11:05)
--- NOTE | 2019-11-17 11:23 | NUR ---
PATIENT RETURNED TO ROOM WITH TELEMETRY ON. DENIES ANY CHEST PAIN OR DISCOMFORT. STABLE AT THIS TIME
--- NOTE | 2019-11-17 21:11 | NUR ---
ALERT,UP AD KAROLINA IN HALLWAY. NO DISTRESS NOTED. NO COMPLAITNS VOICED. IV TO RFA INTACT WITHOUT REDNESS OR EDEMA NOTED. RESP UNLABORED.
[2019-11-18] VITALS: BP 121/69
--- NOTE | 2019-11-18 02:18 | NUR ---
I have reviewed this patient and I concur with the Shift Assessment completed by the Licensed Practical Nurse today this shift.
[2019-11-18 04:00] VITALS: BP 139/79
[2019-11-18 06:22] LABS: BASOPHILS 0.3 % (0-2); EOSINOPHILS 4.1 % (0-7); HEMATOCRIT 46.2 % (42.0-54.0); HEMOGLOBIN 15.9 g/dL (13.5-17.5); IMMATURE GRANULOCYTES 0.2 % (0-5); LYMPHOCYTES 28.1 % (15-50); MCHC 34.4 g/dL (31.0-37.0); MCV 90.1 fL (80.0-100.0); MEAN PLATELET VOLUME 11.3 fL (7.4-10.4); MONOCYTES 13.5 % (2-11); NEUTROPHILS 53.8 % (40-80); PLATELET COUNT 185 10x3/uL (130-400); RBC 5.13 10x6/uL (4.20-6.10); WBC 6.3 10x3/uL (4.8-10.8)
[2019-11-18 06:51] LABS: ALKALINE PHOSPHATASE 70 U/L (30-120); ALT (SGPT) 15 U/L (10-68); CALC OSMOLALITY 286 mosm/kg (275-300); CALCIUM 8.7 mg/dL (8.5-10.1); CARBON DIOXIDE 31.4 mmol/L (21.0-32.0); CHLORIDE - SERUM 108 mmol/L (98-107); CREATININE - SERUM 0.9 mg/dL (0.6-1.3); GLUCOSE 89 mg/dL (74-106); PHOSPHOROUS 3.3 mg/dL (2.5-4.9); POTASSIUM - SERUM 4.3 mmol/L (3.5-5.1); PROTEIN - SERUM 5.6 g/dL (6.4-8.2); SODIUM 145 mmol/L (136-145); UREA NITROGEN 11 mg/dL (7-18); eGFR NON AFRICAN AMERICAN > 90 mL/min (90-120)
--- NOTE | 2019-11-18 09:00 | NUR ---
ALERT AND ORIENTED X4. RESP. EVEN AND UNLABORED AND CTA X4. TELEMETRY INTACT AND HRRR. DENIES ANY CHEST PAIN OR DISCOMFORT. UP ADLIB WTH GOOD ROM OF EXT. X4. ENCOURAGED TO USE CALL LIGHT FOR ASSIST. ABDOMEN SOFT WITH BOWEL SOUNDS NOTED X4. STATES FEELS BETTER.
[2019-11-18 09:14] VITALS: BP 128/87
[2019-11-18 12:01] VITALS: BP 142/90
[2019-11-18] MEDS ORDERED: LANOXIN125 MCG PO (12:49)
--- NOTE | 2019-11-18 12:49 | NUR ---
PT REPORTS HE WAS GIVEN WRITTEN RX FOR DIGOXIN PER CARDIOLOGY.
--- NOTE | 2019-11-18 13:50 | NUR ---
IV DISCONTINUED AND VERBALIZED UNDERSTANDING OF DISCHARGE ISTRUTIONS. STABLE AT TIME OF DEPARTURE.
--- NOTE | 2019-11-19 15:52 | MORECARE ---
CASE MANAGEMENT DISCHARGE SUMMARY PATIENT: KENA DANGELO UNIT: [id number] ADM DATE: 11/15/19 AGE: 59 : 56 SEX: M ROOM/BED: D.2202 AUTHOR: BOB BESS PHYSICIAN: REFERRING PHYSICIAN: EDENILSON COLE DO DATE OF SERVICE: 11/19/19 Discharge Plan Patient Name: KENA DANGELO Facility: [facility]:[place] : 1960 Planned Disposition: Home Anticipated Discharge Date: 11/18/19 Discharge Date: 11/18/2019 Expected LOS: 3 Initial Reviewer: [id number] Initial Review Date: 11/15/2019 Generated: 11/19/19 4:52 pm Comments DCP- Discharge Planning Updated by [email or web address]: Carmen Razo on 11/16/19 3:[address] DC PLAN: Return home independently with . ANTICIPATED DC NEEDS: Denied known dc needs. CM met with patient to complete initial dc planning assessment. CM educated patient on the CM role and verbal consent given by patient to complete assessment. CM verified patient's address, phone number, and emergency contact phone numbers. Patient lives at [facility] independently with his . At discharge patient plans to return home and feels this is a safe discharge. CM discussed availability of home health, rehab services, and medical equipment. Patient denied known discharge needs at this time. Transportation provider at discharge will be his . CM will continue to follow and will assist as needed with dc plans/needs. Carmen Razo RN, [facility] DCPIA - Discharge Planning Initial Assessment Updated by [email or web address]: Carmen Razo on 11/16/19 4:53 pm * Is the patient Alert and Oriented? Yes * How many steps to enter\exit or inside your home? NONE * PCP Dr. Cole * Pharmacy [facility] in [place] * Preadmission Environment Home with Family * ADLs Independent * Equipment None * List name and contact numbers for known caregivers / representatives who currently or will assist patient after discharge: Donna Dangelo - spouse - [phone] * Verbal permission to speak to the caregivers and representatives has been obtained from the patient. Yes * Community resources currently utilized None * Additional services required to return to the preadmission environment? No * Can the patient safely return to the preadmission environment? Yes * Has this patient been hospitalized within the prior 30 days at any hospital? No Last DP export: 11/16/19 3:58 p Patient Name: KENA DANGELO Page [phone] at 1552 All edits/amendments must be made on the electronic document DICTATION DATE: 11/19/191551 HORSE STUD WORKER: SEVERIANO 11/19/191551 RPT#: [id number] DC DATE:11/18/19 STATUS: DIS IN [facility] [address] [place] [address] END OF REPORT
== END 2019-11-18 13:50 | disposition home or self-care (01) | DRG 392 ==
LOC: D.MS 17:27
PROVIDERS: Emergency Medicine; Family Medicine; Radiology Diagnostic Radiology; ADMIT Family Medicine; ATTEND Family Medicine
PROC: 07DR3ZX Extraction of Iliac Bone Marrow, Percutaneous Approach, Diagnostic (ICD-10-PCS; principal; 2019-11-17 10:30)
DX: K52.9 Noninfective gastroenteritis and colitis, unspecified (principal); I48.20 Chronic atrial fibrillation, unspecified; E86.0 Dehydration; D45 Polycythemia vera; I10 Essential (primary) hypertension; M54.9 Dorsalgia, unspecified; N40.0 Benign prostatic hyperplasia without lower urinary tract symptoms; R73.9 Hyperglycemia, unspecified